=== PATIENT | female | born 1985 | race Caucasian/White ===

== ENCOUNTER 2024-08-09 23:05 | Inpatient (IN) | payer OTHER, SELFPAY ==
[2024-08-09] VITALS (12 sets, daily range): BP systolic 129–170; BP diastolic 74–113; BMI 40.0
[2024-08-09 14:44] LABS: % Basophils 0.4 % (0-2); % Eosinophils 0.4 % (0-6); % Immature Granulocytes 0.5 % (0-0.5); % Monocytes 7.3 % (1.7-9.3); % Neutrophils 69.4 % (42.2-75.2); Absolute Basophils 0.1 10^3/uL (0-0.2); Absolute Eosinophils 0.1 10^3/uL (0-0.7); Absolute Immature Granulocytes 0.1 10^3/uL (0-0.05); Absolute Lymphocytes 2.5 10^3/uL (1.2-3.4); Absolute Monocytes 0.8 10^3/uL (0.1-0.6); Hematocrit 42.8 % (37.0-47.0); Hemoglobin 14.6 g/dL (12.0-16.0); Mean Corp Hgb Conc. 34.1 g/dL (33.0-37.0); Mean Corpuscular Hgb 27.8 pg (27.0-31.0); Mean Corpuscular Volume 81.4 fL (81.0-99.0); Mean Platelet Volume 9.2 fL (7.4-10.4); Nucleated Red Blood Cells % 0 %; Platelet Count 410 10^3/uL (130-400); Red Blood Cell Count 5.26 10^6/uL (4.20-5.40); Red Cell Dist. Width 13.2 % (11.5-14.5); White Blood Cell Count 11.5 10^3/uL (4.8-10.8)
--- NOTE | 2024-08-09 14:44 | ED.CVA ---
History of Present Illness
General
Chief Complaint: CVA/TIA Symptoms
Time Seen by Provider: 08/09/24 14:05
Onset of Stroke Symptoms
Onset of symptoms known: No
Time pt last seen normal is known: No
History of Present Illness
History of Present Illness:
38-year-old female with history of hypertension presenting to the emergency department for strokelike symptoms. Patient reports a week ago she noticed that her left lip was drooping, lower lip. She thought it may be secondary to dental work that
she had gotten done, however the dental work was on the right side. Symptoms persisted through the week. This morning when she woke up, between 8 and 9, noticed some left upper and lower extremity weakness and tingling. Reports that she had a lag
when she was trying to type on her computer. Additionally felt like her speech was slightly off, feels like her tongue is numb on the left side. She denies any neurologic issues in the past or family history of neurologic disease. She denies any
fever or recent illness. She denies chest pain, difficulty breathing, abdominal pain. She denies any recent injury or fall. She denies additional acute medical complaints
Phy Exam
Physical Exam
Physical Exam:
General: Well-appearing, no clinical signs of dehydration, nontoxic and in no acute distress
HEENT: protecting airway
Neck: appears supple
CV: Normal heart rate, regular rhythm
Resp: No accessory muscle use, no increased work of breathing, lungs clear to auscultation bilaterally
Abd: Soft and non-distended, no tenderness to palpation
Extremities: No deformities, no swelling, no erythema, pulses and sensation intact
Neuro: alert, slight drooping of the left lower lip. Normal speech. Range of motion with strength and sensation intact to all extremities, minimal weakness to the left upper and lower extremity comparison to the right
: deferred
Rectal: deferred
Psych: Normal affect
Skin: Intact
Scores
NIH Stroke Score
Level of Consciousness: 0 - Alert
LOC Questions: 0-Answers both correctly
LOC Commands: 0-Performs both correctly
Best Horizontal Gaze: 0-Normal
Visual Krueger: 0=Normal, no visual loss
Facial Palsy: 1=Minor paralysis
Motor - Right Arm: 0=No drift 10 seconds
Motor - Left Arm: 0=No drift 10 seconds
Motor - Right Le-No drift 5 seconds
Motor - Left Le-No drift 5 seconds
Limb Ataxia: 0-Absent
Sensation: 0-Normal
Best Language: 0-No aphasia
Dysarthria: 0-Normal
Extinction and Inattention: 0-No abnormality
Total Score:: 1
Course
Orders/Labs/Results
Orders:
Orders
08/09/24 13:54
Electrocardiogram (*1) Urgent
Reason for Study: Bradycardia / Tachycardia
EKG- Treatment ONCE
08/09/24 14:18
CT Head W/o Iv Contrast Urgent
Comment:
Reason For Exam: L-facial droop, L-side weakness
08/09/24 14:20
Electrocardiogram (*1) Stat
Reason for Study: Other
Other Reason for Exam: neuro symptoms
EKG- Treatment ONCE
08/09/24 14:22
Test Result ONCE
08/09/24 14:25
Test Result ONCE
08/09/24 14:26
Complete Blood Count/With Diff Urgent
Comprehensive Metabolic Panel Urgent
HCG, Serum Qualitative Screen Urgent
PTT Urgent
Prothrombin Time Urgent
Urinalysis Reflex To Culture Urgent
Date Specimen was Collected: 08/09/24
Time Specimen was Collected: 14:23
08/09/24 16:21
Aspirin 325 mg PO NOW STA
08/09/24 16:50
CT Head & Neck Angio W/wo IV Urgent
Comment:
Reason For Exam: L-facial droop, slurring of speech
Abnormal Lab Results
08/09/24
14:26
WBC 11.5 H 10^3/uL
(4.8-10.8)
Plt Count 410 H 10^3/uL
(130-400)
Abs Immat Gran (auto) 0.1 H 10^3/uL
(0-0.05)
Absolute Neuts (auto) 8.0 H 10^3/uL
(1.4-6.5)
Absolute Monos (auto) 0.8 H 10^3/uL
(0.1-0.6)
Glucose 196 H mg/dl
(70-99)
Calcium 10.4 H mg/dl
(8.4-10.2)
AST 44 H U/L
(14-36)
ALT 74 H U/L
(0-35)
Albumin 5.1 H g/dl
(3.5-5.0)
Urine Glucose Trace A
(Negative)
08/09/24 14:26
08/09/24 14:26
Vital Signs
Initial and Last Documented VS:
Initial Vital Signs
Temp Pulse Resp BP Pulse Ox
98.2 F 130 16 170/113 98
08/09/24 13:48 08/09/24 13:48 08/09/24 13:48 08/09/24 13:48 08/09/24 13:48
Last Documented Vital Signs
Temp Pulse Resp BP Pulse Ox
98.2 F 83 21 133/82 96
08/09/24 13:48 08/09/24 21:00 08/09/24 21:00 08/09/24 21:00 08/09/24 21:00
MDM/Problems Addressed
MDM/Problems Addressed:
38-year-old female presenting to the emergency department for concern of strokelike symptoms. Vital signs on arrival are significant for high blood pressure.
On exam, patient well-appearing with benign cardiac and pulmonary exam. Patient with obvious drooping to the left lower lip. Patient reports some weakness to left upper and lower extremity, minimal, and overall globally intact. NIH stroke scale
of 1. Patient is not a tPA candidate with symptoms starting a week ago. Smiley's palsy is a consideration, however appears to only be isolated to the lip. Hypertensive urgency is a consideration, however blood pressure is improving without
additional concern for endorgan dysfunction. Plan for CT brain imaging, particularly given marked hypertension. Will plan for neurologic consultation
16:20 - CT negative for acute process, however symptoms are concerning. In discussion with neuro, recommending MRI and aspirin.
*Critical Care Note
Total Time (30-74mins, 75-104mins- exclusive of procedures): Not Applicable
ED Attending Note
-
Portions of this chart may have been created with voice recognition software.� Occasional wrong word or��sound alike� substitutions may have occurred due to the inherent limitations of voice recognition software.
Discharge Plan
Departure
Patient Disposition: Admit
Date of Disposition: 08/09/24
Time of Disposition: 16:56
Presentation/result/management discussed w/ accepting MD/DO: Hospitalist
Patient with high blood pressure during this ER visit?: Yes
Condition: Fair
Discharge Problem:
Stroke-like symptoms
Prescriptions:
No Action
Theragen Tablet
1 tab PO QPM
amlodipine 10 mg Tablet
10 mg PO HS
pantoprazole 40 mg Tablet,Delayed Release (Dr/Ec)
40 mg PO DAILY
valsartan 160 mg Tablet
160 mg PO HS
biotin 5 mg Tablet
5 mg PO QPM
cholecalciferol (vitamin D3) [Vitamin D3] 50 mcg (2,000 unit) Tablet
100 mcg PO QPM
Referrals:
Jl Goodwin DO [Family Provider] -
Interventions
Interventions:
*Risk Screen - Suicide Last Done: 08/09/24 13:48
*General Assessment Last Done: 08/09/24 14:07
*Neglect/Abuse Screening Last Done: 08/09/24 13:48
ED- Pulmonary Assessment Last Done: 08/09/24 14:07
ED- Neurological Assessment Last Done: 08/09/24 14:07
ED- Cardiac Assessment Last Done: 08/09/24 14:07
ED Swallowing Screen Last Done: 08/09/24 14:07
Discharge Date and Time
Print Language: PERSIAN
[2024-08-09 14:48] LABS: INR 0.99; PT 13.4 Sec (11.4-14.6)
[2024-08-09 14:49] LABS: APTT 27.8 Sec (23.4-35.0)
[2024-08-09 14:56] LABS: ALT (SGPT) 74 U/L (0-35); AST (SGOT) 44 U/L (14-36); Albumin 5.1 g/dl (3.5-5.0); Alkaline Phosphatase 71 U/L (38-126); Blood Urea Nitrogen 8 mg/dl (7-17); Calcium 10.4 mg/dl (8.4-10.2); Carbon Dioxide 26 mmol/L (22-30); Chloride 100 mmol/L (98-107); Estimated Creatinine Clearance > 125 ml/min; Glucose 196 mg/dl (70-99); Potassium 4.1 mmol/L (3.5-5.1); Sodium 137 mmol/L (135-145); Total Bilirubin 0.4 mg/dl (0.2-1.3); Total Protein 7.8 g/dl (6.3-8.2); eGFR > 60.00
[2024-08-09 14:57] LABS: HCG, Serum Qualitative Screen Negative
[2024-08-09 15:20] LABS: Urine Albumin Negative (Neg - Trace); Urine Bilirubin Negative (Negative); Urine Character Clear (Clear); Urine Color Yellow; Urine Glucose Trace (Negative); Urine Ketone Negative (Negative); Urine Leukocyte Negative (Negative); Urine Nitrite Negative (Negative); Urine Occult Blood Negative (Negative); Urine Urobilinogen Negative (Neg - 1+)
[2024-08-09] MEDS: ASPIRIN 325 MG PO (16:38)
--- NOTE | 2024-08-09 21:53 | HPS.HSE ---
Family Physician
-
Family Physician: Jl Goodwin
Chief Complaint
-
CVA/TIA symptoms
History of Present Illness
Patient is a 38-year-old female with past medical history significant for hypertension and GERD who presented to [place] ED for evaluation of left sided weakness. Patient reports getting dental work done on right lower mouth on Friday where she
had a crown placed. Patient states she noticed that left lower lip was dropping on Friday and though maybe it was residual effects from dental work, despite being opposite side of mouth. Since then she has noticed occasions where she has slurred
speech with some words and needs to slow down to enunciate. This morning when she took dog for walk she noticed some numbness in left leg and left arm. She came home and started working when she got concerned when typing with left hand became
difficult. Patient denies any fever, chills, cough, shortness of breath, chest pain, nausea, vomiting, constipation, diarrhea or urinary symptoms.
Medical History
Past Medical History
Past Medical History: Reports Other
Additional Past Medical History:
Hypertension
GERD
Past Surgical History: Reports Other
Additional Past Surgical History:
Right ankle fx repair
tonsillectomy
wisdom teeth
Social History
Tobacco: Non-smoker
Alcohol: Occasional
Drug: Marijuana (uses edible from dispensary for sleep occasionally last one 2 days ago post onset of symptoms)
Personal: Partner
Living: Other (with partner)
Employment: Employed
Family History
Family History: Not pertinent
Allergies / Home Medications
Allergies reflects when Allergies were last updated in [employer].
Home Medications with original date entered in [employer]
Allergy/Medication List:
Allergies
Allergy/AdvReac Type Severity Reaction Status Date / Time
Sulfa (Sulfonamide Allergy Unknown Verified 08/09/24 13:53
Antibiotics)
Home Medications
amlodipine 10 mg tablet 10 mg PO HS 08/09/24
biotin 5 mg tablet 5 mg PO QPM 08/09/24
cholecalciferol (vitamin D3) 50 mcg (2,000 unit) tablet (Vitamin D3) 100 mcg PO QPM 08/09/24
pantoprazole 40 mg tablet,delayed release 40 mg PO DAILY 08/09/24
therapeutic multivitamin 1 tab PO QPM 08/09/24
valsartan 160 mg tablet 160 mg PO HS 08/09/24
Review of Systems
-
History Source: Patient
Constitutional: Reports No Symptoms
EENT: Reports No Symptoms
Respiratory: Reports No Symptoms
Cardiac: Reports No Symptoms
Abdomen/GI: Reports No Symptoms
: Reports No Symptoms
Musculoskeletal: Reports No Symptoms
Skin: Reports No Symptoms
Neurological: Reports Weakness (left sided), Numbness (left upper and lower extremity) and Other (left lower lip droop)
Endocrine: Reports No Symptoms
Hematologic/Lymphatic: Reports No Symptoms
Psych: Reports No Symptoms
Physical Exam
Vital Signs
Vital Signs
Temp Pulse Resp BP Pulse Ox
98.2 F 83 21 133/82 96
08/09/24 13:48 08/09/24 21:00 08/09/24 21:00 08/09/24 21:00 08/09/24 21:00
Physical Exam
General: Well Developed, Well Nourished, No Apparent Distress, Comfortable and Conversant
HEENT: NormoCephalic, Moist mucous membranes, Atraumatic, PERRLA, [place] Conjunctivae, Nose Appears Normal and Ears Appear Normal
Respiratory: Clear and Non Labored Respirations
Cardiac: S1/S2 and Regular Rhythm; No Murmur, Rub or Gallop
Breast: Deferred by me
GI: Soft, Non Tender and Normal Bowel Sounds; No Organomegaly
Rectal: Deferred by Provider
Genito-urinary: Deferred by me
Musculoskeletal: No Clubbing, No Cyanosis and No Edema
Skin: Warm and IV/Catheter Site; No Rash
Neuro: Awake, Alert, AO x 3, Nonfocal/grossly intact and Facial Droop (left lower lip)
Psych: Calm and Intact Judgment/Insight
Laboratory Results
-
08/09/24 14:26
08/09/24 14:
Laboratory Results
PT 13.4 Sec (11.4-14.6) 08/09/24 14:26
INR 0.99 08/09/24 14:
APTT 27.8 Sec (23.4-35.0) 08/09/24 14:
Total Bilirubin 0.4 mg/dl (0.2-1.3) 08/09/24 14:
AST 44 U/L (14-36) H 08/09/24 14:
ALT 74 U/L (0-35) H 08/09/24 14:
Alkaline Phosphatase 71 U/L (38-126) 08/09/24 14:
Data Reviewed
-
CT Scan: Report Reviewed by me (Head CT: No acute intracranial abnormality noted; Head CTA: No evidence of acute vascular abnormality of the head/neck. No evidence of M1 and M2 occlusion. Mild reversal of the normal cervical spinal lordosis. This
can be seen with muscular spasm. Bilateral subcentimeter hypodense thyroid lesions)
Medical Tests (Nuc Med, Echo, EKG etc): Report Reviewed by me (EKG: SINUS TACHYCARDIA OTHERWISE NORMAL ECG NO PREVIOUS ECGS AVAILABLE)
Lab Data: Labs Reviewed by me (WBC 11.5, )
Impression/Plan
-
IMPRESSION/PLAN:
#Likely CVA
Left lower lip droop x2 days
Left sided weakness and numbness
CT: No acute intracranial abnormality noted.
CTA: No evidence of acute vascular abnormality of the head/neck. No evidence of M1 and M2 occlusion.
Mild reversal of the normal cervical spinal lordosis. This can be seen with muscular spasm.
Bilateral subcentimeter hypodense thyroid lesions likely benign nodules. Nonurgent dedicated thyroid ultrasound recommended if not previously evaluated.
- Admit to telemetry
- Consult Neurology
- MRI
- Neurochecks
- NIH
- start plavix
#hypertension
- continue amlodipine and valsartan
#GERD
- continue pantoprazole
Code Status: Full Code
DVT Prophylaxis: SCDs
--- NOTE | 2024-08-09 22:27 | W.PN.UPDATE ---
Update Note
Progress Note Update
This is an addendum to the H&P written by Brianda Adrian on 08/09/2024. Patient seen and examined independently with REFRACTORY TECHNICIAN.
38-year-old female past medical history of hypertension presenting with left lower lip drooping a week ago. This morning she had left upper and lower extremity weakness and tingling, difficulty typing on computer and speech abnormality numbness of
tongue on the left side. She had right side dental work last week.
CT head negative for any intracranial abnormality. CTA head and neck unremarkable.
Labs show mild transaminitis. Leukocytosis. Urinalysis negative. EKG shows sinus tachycardia.
Concern for CVA. Aspirin given. Will also give Plavix.
Check MRI brain. Neurology consulted.
[2024-08-10] VITALS (18 sets, daily range): BP systolic 121–194; BP diastolic 73–107; BMI 39.0
[2024-08-10 06:28] LABS: Troponin I < 0.012 ng/ml
[2024-08-10 07:06] LABS: Blood Urea Nitrogen 10 mg/dl (7-17); Calcium 9.7 mg/dl (8.4-10.2); Carbon Dioxide 22 mmol/L (22-30); Chloride 102 mmol/L (98-107); Estimated Creatinine Clearance > 125 ml/min; Glucose 145 mg/dl (70-99); HDL Cholesterol 42 mg/dl; LDL Cholesterol, Calculated 117 mg/dl; Potassium 4.1 mmol/L (3.5-5.1); Sodium 137 mmol/L (135-145); Total Cholesterol 198 mg/dl (50-199); Triglyceride 197 mg/dl (10-149); Very Low Density Lipoprotein 39 mg/dl (0-30); eGFR > 60.00
[2024-08-10 07:19] LABS: Erythrocyte Sed Rate 8 mm/hour (0-20)
[2024-08-10 07:35] LABS: % Basophils 0.4 % (0-2); % Eosinophils 1.2 % (0-6); % Immature Granulocytes 0.5 % (0-0.5); % Lymphocytes 27.7 % (20.5-51.1); % Monocytes 8.2 % (1.7-9.3); Absolute Basophils 0.1 10^3/uL (0-0.2); Absolute Eosinophils 0.2 10^3/uL (0-0.7); Absolute Immature Granulocytes 0.1 10^3/uL (0-0.05); Absolute Lymphocytes 3.4 10^3/uL (1.2-3.4); Absolute Neutrophils 7.7 10^3/uL (1.4-6.5); Hematocrit 42.1 % (37.0-47.0); Hemoglobin 14.4 g/dL (12.0-16.0); Mean Corp Hgb Conc. 34.2 g/dL (33.0-37.0); Mean Corpuscular Volume 81.9 fL (81.0-99.0); Mean Platelet Volume 9.7 fL (7.4-10.4); Nucleated Red Blood Cells % 0 %; Platelet Count 416 10^3/uL (130-400); Red Blood Cell Count 5.14 10^6/uL (4.20-5.40); Red Cell Dist. Width 13.4 % (11.5-14.5); White Blood Cell Count 12.3 10^3/uL (4.8-10.8)
[2024-08-10] MEDS: PROTONIX PO (07:50)
[2024-08-10] MEDS: PLAVIX PO (07:50)
[2024-08-10] MEDS: PLAVIX 75 MG PO (07:50)
[2024-08-10 09:35] LABS: Vitamin D, 25-OH*** 21.4 ng/mL (30-80)
--- NOTE | 2024-08-10 09:36 | CON.NEURO4 ---
Addendum entered and electronically signed by Ramo Castañeda MD 08/10/24 12:00:
Studies reviewed.
I have personally examined the patient. I reviewed and agree with the [facility]ECT[facility]ER's Note.
My addenda:
Awake, alert, interactive. No acute distress.
Speech minimally thick at times.
Follows 2-step requests w/o difficulty. No tremor.
Extra-ocular movements grossly intact.
Facial movements minimally reduced on the left compared with right especially with spontaneous facial movements. Hearing intact to normal conversational volume.
Normal UE movements bilaterally.
Neck: full ROM.
Chest: no dyspnea
Heart: no JVD
Ext: (-) Clubbing, (-) Cyanosis, (-) Edema
IMPRESSIONS/RECOMMENDATIONS:
Abrupt onset of left-sided weakness involving arm and leg as well as left face, with prior episode of bladder dysfunction taking place several months ago
Differential diagnosis includes multiple sclerosis based on MRI of brain findings, lupus, MS variants including NMOSD and MOGAD
Check MRI of brain with contrast to better determine if enhancement is taking place or if additional lesions are present
Check MRI of cervical and thoracic spines with eventual MRI of the lumbar spine
If there are no lesions in the cervical or thoracic spines, would perform lumbar puncture to better determine diagnosis and eliminate causes other than multiple sclerosis
Start methylprednisolone 1 g IV for 5 days
Check additional blood work for metabolic answers
Rehabilitation evaluations
D/W patient / nursing
All questions answered.
Will continue to follow patient.
Original Note:
Consultation - Neurology 4
-
CONSULTING PHYSICIAN: Dr. Ramo Castañeda
REFERRING PHYSICIAN: Dayanna Adrian
DICTATED BY: Brittny OLIVEROS
DATE/TIME OF REQUEST: 08/09/2024
DATE/TIME OF CONSULTATION: 08/10/2024
Reason for Consultation: left facial weakness and left hand decreased coordination and left LE sensation changes
History of Present Illness:
This is a 38 year old female patient with a past medical past medical history of HTN, GERD and anxiety that presented with left sided weakness of left lower lip, lack of coordination of left hand and upper left thigh numbness.� She felt her gait is
not normal but denies any significant weakness.� She denied any vision changes or any additional numbness or weakness.� Symptoms initially started last Friday when she noted weakness of her left lower lip and some mild speech changes.� She had had
dental surgery the Friday before and thought that weakness may have been related to that. Yesterday she was typing and noted some lack of coordination with her left hand, she was fearful of stroke and decided she needed to be evaluated.� She denied
any similar symptoms in the past. �She does admit to some bladder urgency, but no incontinence of urine.� Has had no issues with bowel. No visual changes, not other paresthesias.
Of note she had some hair loss in 2018 and had seen a subspecialist who had thought she may have had an autoimmune disease possibly lupus, but this was ruled out and was told she just had a Vitamin D deficiency.�
Symptoms have been persistent, have not improved.
Past Medical History: HTN, GERD, vitamin D deficiency and anxiety
Surgical History: right ankle surgery
Family History: no family history of MS
Social History: Pt lives with significant other. She does not smoke or drink ETOH
Allergies: see below
Home Medications: see below
Review of Symptoms:
Patient denies any fever, headache, chest pain, shortness of breath, GI or symptoms.
�
Vital Signs: see below
Physical Exam:
The patient is afebrile, heart sounds S1 and S2 are regular, and chest is clear to auscultation bilaterally.
Neurologic Examination:
The patient is awake, alert and oriented x 3. She is able to follow commands and answer questions appropriately. There is no aphasia, mild dysarthria. On cranial nerve assessment, pupils are 3 mm bilateral, round and reactive to light and
accommodation. Visual white are full. Extraocular movements are intact. Facial sensations are intact and bilaterally symmetrical, there is left facial droop. Hearing is intact bilaterally to normal conversation volume. Tongue palate and uvula are
midline. Sternocleidomastoid strengths are full bilaterally. Motor strengths are 5/5 bilateral upper and lower extremities on medical research Tang[place]naq scale. There is no drift or involuntary movement noted. Deep tendon reflexes are 2+ bilateral
upper and lower extremities and Babinski is absent bilaterally. Sensations of light touch, temperature and vibration are intact and bilaterally symmetrical. There was no extinction noted on double simultaneous stimulation. Coordination is intact by
finger to nose bilaterally.
Lab Results: see below
Neuro Imaging:
CT head (08/09/2024)-No acute intracranial abnormality noted.
CTA head and neck (08/09/2024)-No evidence of acute vascular abnormality of the head/neck. No evidence of M1 and M2 occlusion. Mild reversal of the normal cervical spinal lordosis. This can be seen with muscular spasm.
Bilateral subcentimeter hypodense thyroid lesions likely benign nodules. Nonurgent dedicated thyroid ultrasound recommended if not previously evaluated.
MRI brain with and without contrast (08/10/2024)-White matter lesions in the bilateral cerebral hemispheres, with the largest measuring 2.1 cm in the right frontoparietal periventricular white matter. The distribution raises concern for
demyelination/multiple sclerosis. Clinical correlation is recommended.
Impression:
JULIA GAO is a 38 year old F who has presented to the hospital with left facial weakness, dysarthria, left hand with reduced coordination and left leg numbness likely secondary to MS as lesion noted on MRI brain, less likely infection or
lyme.
Recommendations:
-Reviewed MRI brain without contrast
-Need additional MRI brain with and without contrast, cervical spine with and without contrast and MRI thoracic spine with and without contrast
-will start high dose steroids, methylprednisolone 1000 mg IV daily
-discontinue Plavix, and ASA
-start vitamin D 4000 units daily
-will order additional labs
-may need to consider LP, if no further lesions noted on additional MRI's
-continue Neurochecks per unit guidelines, but can discontinue NIHSS
-continue speech
-will order PT and OT evaluations
Discussed patient care with patient, and neurologist, Dr. Castañeda
Medication and Allergies
Home Medications
Home Medications
�Medication �Instructions �Recorded
amlodipine 10 mg tablet 10 mg PO HS 08/09/24
biotin 5 mg tablet 5 mg PO QPM 08/09/24
cholecalciferol (vitamin D3) 50 100 mcg PO QPM 08/09/24
mcg (2,000 unit) tablet (Vitamin
D3)
pantoprazole 40 mg tablet,delayed 40 mg PO DAILY 08/09/24
release
therapeutic multivitamin 1 tab PO QPM 08/09/24
valsartan 160 mg tablet 160 mg PO HS 08/09/24
Allergies
Allergies
Allergy/AdvReac Type Severity Reaction Status Date / Time
Sulfa (Sulfonamide Allergy Unknown Verified 08/09/24 13:53
Antibiotics)
Vital Signs / Labs
-
Vital Signs and Labs:
Temp Pulse Resp BP Pulse Ox
98.5 F 78 27 156/86 97
08/10/24 10:23 08/10/24 10:20 08/10/24 08:00 08/10/24 10:20 08/10/24 10:20
08/10/24 05:32
08/10/24 05:32
08/09/24 08/10/24
14:26 05:32
WBC 11.5 H 12.3 H
Plt Count 410 H 416 H
Abs Immat Gran (auto) 0.1 H 0.1 H
Absolute Neuts (auto) 8.0 H 7.7 H
Absolute Monos (auto) 0.8 H 1.0 H
Glucose 196 H 145 H
Hemoglobin A1c 7.0 H
Calcium 10.4 H
AST 44 H
ALT 74 H
C-Reactive Protein 11.00 H
Albumin 5.1 H
Triglycerides 197 H
VLDL Cholesterol, Calc 39 H
Vitamin D 25-Hydroxy 21.4 L
Urine Glucose Trace A
[2024-08-10 09:48] LABS: TSH Reflex To Free T4 2.73 uIU/ml (0.47-4.68)
[2024-08-10 09:52] LABS: Ferritin 15.5 ng/ml (6.24-137)
[2024-08-10] MEDS: SOLU-MEDROL 258 MG IV (10:08)
--- NOTE | 2024-08-10 10:11 | PTOTSP ---
Speech Therapy Assessment
Patient presents with a slight dysarthria characterized by imprecise articulation with need for slow rate to effectively reach sound targets. Language and swallowing deemed within functional limits.
Recommend
1. Continue with regular solids and thin liquids.
2. Patient is effectively utilizing strategies for improved articulation, therefore no skilled ST indicated in acute level of care.
[2024-08-10] MEDS: VITAMIN D3 (cholecalciferol) 125 MCG PO (10:13)
[2024-08-10 10:24] LABS: Folate 19.6 ng/ml (2.76-20); Vitamin B12 769 pg/ml (239-931)
[2024-08-10 13:07] LABS: Amphetamines Negative (Negative); Barbiturates Negative (Negative); Benzodiazepines Negative (Negative); Buprenorphine Negative (Negative); Cocaine Negative (Negative); Marijuana Positive (Negative); Methadone Negative (Negative); Methamphetamines Negative (Negative); Opiates Negative (Negative); Phencyclidine Negative (Negative); Tricyclic Antidepressants Negative (Negative)
--- NOTE | 2024-08-10 14:11 | W.PN.HOSP.TC ---
Today's Communication/Plan
-
Monitor vital signs see plan
MRI spine pending
Start high-dose IV steroids
PPI
A1c
Assessment / Plan
Assessment / Plan
Left lower lip droop, left-sided weakness and numbness likely secondary to demyelination with possible MS
Left sided weakness and numbness
CT: No acute intracranial abnormality noted.
CTA: No evidence of acute vascular abnormality of the head/neck. No evidence of M1 and M2 occlusion.
Mild reversal of the normal cervical spinal lordosis. This can be seen with muscular spasm.
Bilateral subcentimeter hypodense thyroid lesions likely benign nodules. Nonurgent dedicated thyroid ultrasound recommended if not previously evaluated.
MRI brain with white matter changes, MRI cervical and thoracic spine pending
Started high-dose steroids
PPI
DC further Plavix
A1c pending
#hypertension
- continue amlodipine and valsartan
#GERD
- continue pantoprazole
Code Status: Full Code
DVT Prophylaxis: SCDs
General: Well Developed, Well Nourished, No Apparent Distress, Comfortable and Conversant
HEENT: NormoCephalic, Moist mucous membranes, Atraumatic, PERRLA, [place] Conjunctivae, Nose Appears Normal and Ears Appear Normal
Respiratory: Clear and Non Labored Respirations
Cardiac: S1/S2 and Regular Rhythm; No Murmur, Rub or Gallop
GI: Soft, Non Tender and Normal Bowel Sounds
Musculoskeletal: No Clubbing, No Cyanosis and No Edema
Skin: Warm and IV/Catheter Site; No Rash
Neuro: Awake, Alert, AO x 3, Nonfocal/grossly intact and Facial Droop (left lower lip)
Psych: Calm and Intact Judgment/Insight
Anticipated Discharge: > 48 hours
Subjective/Interval History
-
Date of Service: August 10, 2024
still has numbness
Objective Data
-
Labs:
Laboratory Results
12/03/24
05:32
WBC 12.3 H
Hgb 14.4
Hct 42.1
Plt Count 416 H
Sodium 137
Potassium 4.1
Chloride 102
Carbon Dioxide 22
BUN 10
Creatinine 0.6
Glucose 145 H
Calcium 9.7
Vital Signs:
Vital Signs
Temp Pulse Resp BP Pulse Ox
98.7 F 100 22 149/84 97
08/10/24 12:09 08/10/24 12:09 08/10/24 12:09 08/10/24 12:09 08/10/24 12:09
I&O
08/09/24 08/10/24 08/11/24
06:59 06:59 06:59
Intake Total 240 / 240 258 / 258
Balance 240 / 240 258 / 258
[2024-08-10] MEDS: DRISDOL (VITAMIN D2) 50000 UNITS PO (14:46)
[2024-08-10] MEDS: LOPRESSOR 5 MG IV (15:53)
--- NOTE | 2024-08-10 16:18 | CM ---
CM met with pt bedside
Pt resides with her SO/Gera in a 2SH with 2 SUDHIR
Full flight to 2nd floor
Pt is independent with her ADLs- drives+, denies DMEs
Pt works in [employer]
Denies financial insecurities
PCP- Jl Goodwin
Rx- [facility] [address] [place]
Pt does not have POAs
Medical POA paperwork provided to her
She noted she will review with her SO as she would like him to be her decision maker if needed
Discharge Disposition- home, no needs anticipated
[2024-08-10 17:23] LABS: Glucose - Point of Care 297 mg/dl (70-99)
[2024-08-10] MEDS: NOVOLOG FLEXPEN-LOW RESISTANCE SC (17:50)
[2024-08-10 22:09] LABS: Glucose - Point of Care 245 mg/dl (70-99)
[2024-08-10] MEDS: FEOSOL 325 MG PO (23:21)
[2024-08-10] MEDS: DIOVAN 160 MG PO (23:24)
[2024-08-10] MEDS: NORVASC 10 MG PO (23:25)
[2024-08-11] VITALS (9 sets, daily range): BP systolic 95–172; BP diastolic 79–92
[2024-08-11] MEDS: ATIVAN 0.5 MG IV (02:15)
[2024-08-11] MEDS: NSS (PRESERVATIVE FREE) 0.25 ML IV (02:15)
[2024-08-11 07:24] LABS: Glucose - Point of Care 196 mg/dl (70-99)
--- NOTE | 2024-08-11 07:36 | PTCARENOTE ---
Throughout the night, pt's heart monitor alarmed heart rate 110s-120s. Pt reports 'I can feel my heart beating faster.' Pt denied SOB, difficulty breathing, lightheadedness, and dizziness. AM RN updated. Plan of care ongoing.
[2024-08-11] MEDS: NOVOLOG FLEXPEN-LOW RESISTANCE 1 UNITS SC ×2 (07:56→12:31)
[2024-08-11] MEDS: VITAMIN D3 (cholecalciferol) 125 MCG PO (07:57)
[2024-08-11] MEDS: PROTONIX 40 MG PO (07:57)
[2024-08-11 08:00] LABS: Hematocrit 42.7 % (37.0-47.0); Hemoglobin 14.9 g/dL (12.0-16.0); Mean Corp Hgb Conc. 34.9 g/dL (33.0-37.0); Mean Corpuscular Hgb 28.1 pg (27.0-31.0); Mean Corpuscular Volume 80.6 fL (81.0-99.0); Mean Platelet Volume 9.6 fL (7.4-10.4); Platelet Count 458 10^3/uL (130-400); Red Cell Dist. Width 13.3 % (11.5-14.5); White Blood Cell Count 30.6 10^3/uL (4.8-10.8)
[2024-08-11 08:22] LABS: ALT (SGPT) 69 U/L (0-35); AST (SGOT) 37 U/L (14-36); Alkaline Phosphatase 71 U/L (38-126); Blood Urea Nitrogen 17 mg/dl (7-17); Calcium 10.5 mg/dl (8.4-10.2); Carbon Dioxide 16 mmol/L (22-30); Chloride 105 mmol/L (98-107); Direct Bilirubin 0.2 mg/dl (0.0-0.4); Estimated Creatinine Clearance > 125 ml/min; Glucose 175 mg/dl (70-99); Sodium 137 mmol/L (135-145); Total Bilirubin 0.7 mg/dl (0.2-1.3); Total Protein 7.7 g/dl (6.3-8.2); eGFR > 60.00
--- NOTE | 2024-08-11 08:23 | W.PN.NEURO.1 ---
Today's Communication / Plan
-
await MRI of thoracic spine results
Continue methylprednisolone which was initiated on 08/10/2024 for total of 5 doses
check lumbar puncture to determine if MS or mimic if MRI of Thoracic spine results are normal also
Neuro Assessment/Plan
Assessment
Abrupt onset of left-sided weakness involving arm and leg as well as left face, with prior episode of bladder dysfunction taking place several months ago
Differential diagnosis includes multiple sclerosis based on MRI of brain findings, lupus, MS variants including NMOSD and MOGAD
Plan
await MRI of thoracic spine results
Continue methylprednisolone which was initiated on 08/10/2024 for total of 5 doses
check lumbar puncture to determine if MS or mimic if MRI of Thoracic spine results are normal also
await lab results
Goal of normotension
Goal of normoglycemia
Consider MRI of lumbar spine based on next results
Reviewed eventual need for outpatient medication to remediate risk of additional exacerbation
Will follow
Subjective/Objective
Subjective Data
Date of Service: August 11, 2024
Mildly improved. No issues with steroids
Objective Data
Vital Signs
Temp Pulse Resp BP Pulse Ox
36.7 C 90 16 145/92 98
08/11/24 07:34 08/11/24 07:34 08/11/24 07:34 08/11/24 07:34 08/11/24 07:34
Lab Results
08/11/24 06:41
08/11/24 06:41
PT 13.4 Sec (11.4-14.6) 08/09/24 14:26
INR 0.99 08/09/24 14:26
APTT 27.8 Sec (23.4-35.0) 08/09/24 14:26
Sodium 137 mmol/L (135-145) 08/11/24 06:41
Potassium 5.0 mmol/L (3.5-5.1) 08/11/24 06:41
BUN 17 mg/dl (7-17) 08/11/24 06:41
Glucose 175 mg/dl (70-99) H 08/11/24 06:41
Calcium 10.5 mg/dl (8.4-10.2) H 08/11/24 06:41
LDL Cholesterol, Calc 117 mg/dl 08/10/24 05:32
Vitamin B12 769 pg/ml (239-931) 08/10/24 05:32
Ur Buprenorphine Negative (Negative) 08/10/24 12:07
Patient Allergies
Sulfa (Sulfonamide Antibiotics) Allergy (Verified 08/09/24 13:53)
Unknown
Review of Systems
-
History Source: Patient
All other systems: Reviewed and negative
EENT: Negative Swallowing Difficulty
Respiratory: Negative Trouble Breathing
Cardiac: Negative Chest Pain
Abdomen/GI: Negative Incontinence of Stool
Genitourinary: Negative Incontinence
Musculoskeletal: Muscle Weakness (left hand) and Other (left thigh, facial weakness on left); Negative Back Pain or Neck Pain
Neuro: Negative Dizzy or Headache
Physical Exam
-
General: No Apparent Distress and Appears Stated Age
Eyes: Round OU, [place] Conjunctivae and No Ptosis
HEENT: Anicteric and Moist Mucous Membranes
Neck: Full Range of Motion
Respiratory: No Dyspnea
Cardiac: No JVD
GI: Non-distended
Skin: Unremarkable
Extremities: No Clubbing, No Cyanosis and No Edema
Psych: Intact Judgement/Insight
Extended Neurological Exam
Mood & Affect: Mood Unremarkable and Affect Unremarkable
Attention Span & Concentration: Awake, Alert, Interactive and No Difficulty with 2 Step Request
Memory: Unremarkable
Tremor: Hand Tremor Absent and Head Tremor Absent
Speech: Quality Unremarkable and Quantity Unremarkable
Cranial Nerve II: Left Eye: Pupillary Size Unremarkable and Visual Krueger Grossly Intact
Cranial Nerve II: Right Eye: Pupillary Size Unremarkable and Visual Krueger Grossly Intact
Cranial Nerves III, IV, : Extraocular Movement: Grossly Intact
Cranial Nerve VII: Facial Symmetry: Normal Facial Symmetry
Cranial Nerve VIII: Hearing: Unremarkable Hearing to Normal Conversational Volume
Cranial Nerve XI: Shoulder Shrug: Unremarkable
Muscle Strength, Overall: Spontaneously Moves
Muscle Bulk & Tone: Bulk Unremarkable and Tone Unremarkable
Touch Sensation: Unremarkable
Coordination: [id number] Testing Unremarkable
Data Reviewed
-
MRI Head: Report Reviewed
MRI Cervical Spine: Report Reviewed
MRI Thoracic Spine: Image Reviewed
Labs: Report Reviewed
Reviewed with: Physician, Nurse Practioner and Patient
Old Records: Summarized
Past History
Past History
ED Past Medical History: GERD, HTN, NIDDM and Other (obesity)
Medications
-
Medications:
Generic Name Dose Route Start Last Admin
Trade Name Freq PRN Reason Stop Dose Admin
Acetaminophen 650 mg 08/10/24 00:48
Acetaminophen 325 Mg Tablet PO 09/07/24 00:47
Q4HPRN PRN
HENDERSON, mild pain, or temp >100.4F
Amlodipine Besylate 10 mg 08/10/24 22:00 08/10/24 23:25
Amlodipine 10 Mg Tablet PO 09/07/24 21:59 10 mg
HS BENEDICT Administration
Cholecalciferol 125 mcg 08/10/24 11:30 08/11/24 07:57
Cholecalciferol (Vitamin D3) 125 Mcg Tablet (5,000 Units) PO 09/07/24 11:29 125 mcg
DAILY BENEDICT Administration
Dextrose 12.5 grams 08/10/24 14:12
Dextrose 50% (0.5 Grams/Ml) 50 Ml Syringe IV 09/07/24 14:11
[id number] PRN
hypoglycemia
Protocol
Ergocalciferol 50,000 units 08/10/24 14:00 08/10/24 14:46
Ergocalciferol (Vitamin D-2) 75310 Units Capsule PO 09/07/24 13:59 50,000 units
Q7D BENEDICT Administration
Ferrous Sulfate 325 mg 08/10/24 22:00 08/10/24 23:21
Ferrous Sulfate 325 Mg Tablet PO 09/07/24 21:59 325 mg
HS BENEDICT Administration
Glucagon 1 mg 08/10/24 14:12
Glucagon 1 Mg Vial IM 09/07/24 14:11
PRN PRN
hypoglycemia
Protocol
Methylprednisolone Sodium 258 mls @ 258 mls/hr 08/10/24 10:00 08/10/24 10:08
Succinate 1,000 mg/ Sodium IV 08/14/24 10:59 258 mls
Chloride Q24H BENEDICT Administration
Insulin Aspart 0 units 08/10/24 16:30 08/11/24 07:56
Insulin Aspart Low Resistance 300 Units/3 Ml Pen.Injctr SC 09/07/24 16:29 1 units
AC BENEDICT Administration
Protocol
Pantoprazole Sodium 40 mg 08/10/24 08:00 08/11/24 07:57
Pantoprazole 40 Mg Delayed Release Tablet PO 09/07/24 07:59 40 mg
DAILY BENEDICT Administration
Sodium Chloride 0 flush 08/10/24 02:00
Sodium Chloride 0.9% (Flush) Syringe IV 09/07/24 01:59
PER PROTOCOL BENEDICT
Valsartan 160 mg 08/10/24 22:00 08/10/24 23:24
Valsartan 80 Mg Tablet PO 09/07/24 21:59 160 mg
HS BENEDICT Administration
[2024-08-11 09:19] LABS: % Basophils 0.2 % (0-2); % Immature Granulocytes 0.9 % (0-0.5); % Lymphocytes 7.7 % (20.5-51.1); % Monocytes 3.1 % (1.7-9.3); % Neutrophils 88.1 % (42.2-75.2); Absolute Basophils 0.1 10^3/uL (0-0.2); Absolute Immature Granulocytes 0.3 10^3/uL (0-0.05); Absolute Lymphocytes 2.4 10^3/uL (1.2-3.4); Nucleated Red Blood Cells % 0 %
[2024-08-11] MEDS: NSS 1000 IV (10:01)
[2024-08-11] MEDS: SOLU-MEDROL 258 MG IV (10:01)
[2024-08-11] MEDS: ORETIC 12.5 MG PO (10:11)
--- NOTE | 2024-08-11 10:24 | PN.DE.MGMTRT ---
Insulin Management
- -
08/11/2024: Diabetes Management Consult:
38 year old female w/PMH: HTN, GERD and anxiety that presented with Abrupt onset of left-sided weakness involving arm and leg as well as left face, with prior episode of bladder dysfunction taking place several months ago. MRI of brain findings
concerning for differential dx including: MS variants including NMOSD and MOGAD and Lupus. Pt has been started on stress dose IV steroids contributing to hyperglycemia. A1C 7.0%, Cr 0.6, eGFR >60
Pt awake, alert, sitting up in bed, offers no complaints, able to discuss diabetes mgt.
States she has gained significant amt of weight since breaking her ankle 2 yrs ago. she no longer exercises as much as she used to prior to the injury.
Pt remains on steroids- Methylprednisolone 1000 mg daily for total of 5 doses.
08/10 pre-dinner glucose was 297 and 245 @ HS with a FBG of 196 this AM.
Will start basal/bolus insulin while on steroid, with plans to transition to oral regimen given current A1C of 7%
Give Lantus 15 units now and daily in AM. Start NovoLog 5 units AC, metformin 500mg BID.
Will closely monitor and adjust insulin if needed but eventually discontinue insulin all together once steroids have been weaned off.
Diabetes History
- -
Type of Diabetes: 2 requiring insulin
Pre-Admission Diabetes Regimen
08/11/24
06:41
Creatinine 0.6
Lab Results
Hemoglobin A1c 7.0 % (4.0-5.6) H 08/10/24 05:32
Insulin Pump Settings
IP Diabetes Regimen
08/10/24 08/10/24 08/11/24
17:20 22:06 06:41
Glucose 175 H
POC Glucose 297 H 245 H
08/11/24
07:20
Glucose
POC Glucose 196 H
Meal type: Lunch
Amount consumed: 70%
Patient Education
[2024-08-11 12:07] LABS: Glucose - Point of Care 197 mg/dl (70-99)
[2024-08-11] MEDS: LANTUS 0.15 UNITS SC (12:31)
[2024-08-11] MEDS: NOVOLOG FLEXPEN 5 UNITS SC ×2 (12:31→18:00)
--- NOTE | 2024-08-11 13:06 | W.PN.HOSP.TC ---
Today's Communication/Plan
-
monitor vitals
see plan
thoracic MRI
neurology
LP per neurology
diabetes FURNACE MASON consult
start HCTZ
IVF
Assessment / Plan
Assessment / Plan
Left lower lip droop, left-sided weakness and numbness likely secondary to demyelination with possible MS
Left sided weakness and numbness
CT: No acute intracranial abnormality noted.
CTA: No evidence of acute vascular abnormality of the head/neck. No evidence of M1 and M2 occlusion.
Mild reversal of the normal cervical spinal lordosis. This can be seen with muscular spasm.
Bilateral subcentimeter hypodense thyroid lesions likely benign nodules. Nonurgent dedicated thyroid ultrasound recommended if not previously evaluated.
MRI brain with white matter changes, MRI cervical spine neg and thoracic spine pending
LP per neurology if Tspine is neg
Started high-dose steroids,continue
PPI
DC further Plavix
New onset DM
consult diabetes FURNACE MASON
A1c 7
accuchecks; LDSS
#hypertension
uncontrolled; added HCTZ
- continue amlodipine and valsartan
mild hypercalcemia
start IVF
#GERD
- continue pantoprazole
Code Status: Full Code
DVT Prophylaxis: SCDs
General: Well Developed, Well Nourished, No Apparent Distress, Comfortable and Conversant
HEENT: NormoCephalic, Moist mucous membranes, Atraumatic, PERRLA, [place] Conjunctivae, Nose Appears Normal and Ears Appear Normal
Respiratory: Clear and Non Labored Respirations
Cardiac: S1/S2 and Regular Rhythm; No Murmur
Musculoskeletal: No Edema
Skin: Warm and IV/Catheter Site; No Rash
Neuro: Awake, Alert, AO x 3, Nonfocal/grossly intact and Facial Droop (left lower lip)
Psych: Calm and Intact Judgment/Insight
I spent a total of 51 minutes with the patient or on the floor. More than 50% of this time involved counseling and coordination of care.
Anticipated Discharge: > 48 hours
Subjective/Interval History
-
Date of Service: August 11, 2024
feeling little better
Objective Data
-
Labs:
Laboratory Results
08/11/24
06:41
WBC 30.6 H
Hgb 14.9
Hct 42.7
Plt Count 458 H
Sodium 137
Potassium 5.0
Chloride 105
Carbon Dioxide 16 L
BUN 17
Creatinine 0.6
Glucose 175 H
Calcium 10.5 H
Total Bilirubin 0.7
AST 37 H
ALT 69 H
Alkaline Phosphatase 71
Vital Signs:
Vital Signs
Temp Pulse Resp BP Pulse Ox
97.9 F 94 16 144/87 96
08/11/24 11:16 08/11/24 11:16 08/11/24 11:16 08/11/24 11:16 08/11/24 11:16
I&O
08/10/24 08/11/24 08/12/24
06:59 06:59 06:59
Intake Total 240 / 240 1263 / 1263
Balance 240 / 240 1263 / 1263
--- NOTE | 2024-08-11 15:15 | CM ---
Chart reviewed and binder caser met with patient and significant other at bedside, plan is to home when stable, binder caser will follow with patient progress.
Plan; Home when stable.
[2024-08-11 17:59] LABS: Glucose - Point of Care 237 mg/dl (70-99)
[2024-08-11] MEDS: NOVOLOG FLEXPEN-LOW RESISTANCE 2 UNITS SC (18:00)
[2024-08-11 18:07] LABS: CSF Color Colorless; CSF Tube # 4; CSF Tube # Clarity Clear; Red Cell Count/CSF 12 mm^3; White Blood Cell Count/CSF 2 mm^3 (0-5)
[2024-08-11 18:08] LABS: Spinal Fluid Glucose 135 mg/dl (40-70); Spinal Fluid Protein 45 mg/dl (12-60)
[2024-08-11 18:09] LABS: CSF Tube # 1
[2024-08-11 18:10] LABS: CSF Clarity Clear; CSF Color Colorless; Red Cell Count/CSF 296 mm^3; White Cell Count/CSF 4 mm^3 (0-5)
[2024-08-11 20:33] LABS: PT 13.7 Sec (11.4-14.6)
[2024-08-11 21:10] LABS: Glucose - Point of Care 217 mg/dl (70-99)
[2024-08-12] MEDS: DIOVAN 160 MG PO ×2 (00:33→22:27)
[2024-08-12] MEDS: FEOSOL 325 MG PO ×2 (00:34→22:26)
[2024-08-12] MEDS: NORVASC 10 MG PO ×2 (00:34→22:27)
[2024-08-12 03:32] VITALS: BP 133/81
[2024-08-12 07:30] VITALS: BP 143/85
--- NOTE | 2024-08-12 07:33 | W.PN.NEURO.1 ---
Today's Communication / Plan
-
Continue methylprednisolone which was initiated on 08/10/2024 for total of 5 doses
Neuro Assessment/Plan
Assessment
Abrupt onset of left-sided weakness involving arm and leg as well as left face, with prior episode of bladder dysfunction taking place several months ago
Differential diagnosis includes multiple sclerosis based on MRI of brain findings, lupus, MS variants including NMOSD and MOGAD
MRI of cervical, thoracic spine results unremarkable
Lumbar puncture to determine if MS on 08/11/2024
Plan
Continue methylprednisolone which was initiated on 08/10/2024 for total of 5 doses
Started iron replacement
await lab results
Goal of normotension
Goal of normoglycemia
Reviewed eventual need for outpatient medication to remediate risk of additional exacerbation
Will follow
Subjective/Objective
Subjective Data
Date of Service: August 12, 2024
Improved speech. LLE normal sensation.
Objective Data
Vital Signs
Temp Pulse Resp BP Pulse Ox
36.6 C 98 18 133/81 97
08/12/24 03:32 08/12/24 03:32 08/12/24 03:32 08/12/24 03:32 08/12/24 03:32
PT 13.7 Sec (11.4-14.6) 08/11/24 20:18
INR 1.00 08/11/24 20:18
APTT 27.8 Sec (23.4-35.0) 08/09/24 14:26
Sodium 137 mmol/L (135-145) 08/11/24 06:41
Potassium 5.0 mmol/L (3.5-5.1) 08/11/24 06:41
BUN 17 mg/dl (7-17) 08/11/24 06:41
Glucose 175 mg/dl (70-99) H 08/11/24 06:41
Calcium 10.5 mg/dl (8.4-10.2) H 08/11/24 06:41
LDL Cholesterol, Calc 117 mg/dl 08/10/24 05:32
Vitamin B12 769 pg/ml (239-931) 08/10/24 05:32
Ur Buprenorphine Negative (Negative) 08/10/24 12:07
Patient Allergies
Sulfa (Sulfonamide Antibiotics) Allergy (Verified 08/09/24 13:53)
Unknown
Review of Systems
-
History Source: Patient
All other systems: Reviewed and negative
Musculoskeletal: Other (left thigh, facial weakness on left); Negative Muscle Weakness (left hand)
Neuro: Negative Dizzy or Headache
Physical Exam
-
General: No Apparent Distress and Appears Stated Age
Eyes: Round OU, [place] Conjunctivae and No Ptosis
HEENT: Anicteric and Moist Mucous Membranes
Neck: Full Range of Motion
Respiratory: No Dyspnea
Cardiac: No JVD
GI: Non-distended
Extremities: No Clubbing, No Cyanosis and No Edema
Psych: Intact Judgement/Insight
Extended Neurological Exam
Mood & Affect: Mood Unremarkable and Affect Unremarkable
Attention Span & Concentration: Awake, Alert, Interactive and No Difficulty with 2 Step Request
Memory: Unremarkable
Tremor: Hand Tremor Absent and Head Tremor Absent
Speech: Quality Unremarkable and Quantity Unremarkable
Cranial Nerve II: Left Eye: Pupillary Size Unremarkable and Visual Krueger Grossly Intact
Cranial Nerve II: Right Eye: Pupillary Size Unremarkable and Visual Krueger Grossly Intact
Cranial Nerves III, IV, : Extraocular Movement: Grossly Intact
Cranial Nerve VII: Facial Symmetry: Normal Facial Symmetry
Cranial Nerve VIII: Hearing: Unremarkable Hearing to Normal Conversational Volume
Muscle Strength, Overall: Spontaneously Moves
Muscle Bulk & Tone: Bulk Unremarkable and Tone Unremarkable
Touch Sensation: Unremarkable
Coordination: [id number] Testing Unremarkable
Data Reviewed
-
MRI Thoracic Spine: Report Reviewed
Labs: Report Reviewed
Reviewed with: Nurse, Nurse Practioner and Patient
Old Records: Summarized
Past History
Past History
ED Past Medical History: GERD, HTN, NIDDM and Other (obesity, change on MRI of brain)
Medications
-
Medications:
Generic Name Dose Route Start Last Admin
Trade Name Freq PRN Reason Stop Dose Admin
Acetaminophen 650 mg 08/10/24 00:48
Acetaminophen 325 Mg Tablet PO 09/07/24 00:47
Q4HPRN PRN
HENDERSON, mild pain, or temp >100.4F
Amlodipine Besylate 10 mg 08/10/24 22:00 08/12/24 00:34
Amlodipine 10 Mg Tablet PO 09/07/24 21:59 10 mg
HS BENEDICT Administration
Cholecalciferol 125 mcg 08/10/24 11:30 08/11/24 07:57
Cholecalciferol (Vitamin D3) 125 Mcg Tablet (5,000 Units) PO 09/07/24 11:29 125 mcg
DAILY BENEDICT Administration
Dextrose 12.5 grams 08/10/24 14:12
Dextrose 50% (0.5 Grams/Ml) 50 Ml Syringe IV 09/07/24 14:11
[id number] PRN
hypoglycemia
Protocol
Ergocalciferol 50,000 units 08/10/24 14:00 08/10/24 14:46
Ergocalciferol (Vitamin D-2) 23355 Units Capsule PO 09/07/24 13:59 50,000 units
Q7D BENEDICT Administration
Ferrous Sulfate 325 mg 08/10/24 22:00 08/12/24 00:34
Ferrous Sulfate 325 Mg Tablet PO 09/07/24 21:59 325 mg
HS BENEDICT Administration
Glucagon 1 mg 08/10/24 14:12
Glucagon 1 Mg Vial IM 09/07/24 14:11
PRN PRN
hypoglycemia
Protocol
Hydrochlorothiazide 12.5 mg 08/11/24 09:00 08/11/24 10:11
Hydrochlorothiazide 12.5 Mg Tablet PO 09/08/24 08:59 12.5 mg
DAILY BENEDICT Administration
Insulin Glargine 15 units/ 0.15 mls @ 0 mls/hr 08/11/24 11:00 08/11/24 12:31
Device SC 09/08/24 10:59 0.15 mls
DAILY BENEDICT Administration
As Directed
Methylprednisolone Sodium 258 mls @ 258 mls/hr 08/12/24 08:00
Succinate 1,000 mg/ Sodium IV 08/14/24 08:59
Chloride Q24H BENEDICT
Insulin Aspart 0 units 08/10/24 16:30 08/11/24 18:00
Insulin Aspart Low Resistance 300 Units/3 Ml Pen.Injctr SC 09/07/24 16:29 2 units
AC BENEDICT Administration
Protocol
Insulin Aspart 5 units 08/11/24 11:30 08/11/24 18:00
Insulin Aspart (100 Units/Ml) 3 Ml Flexpen SC 09/08/24 11:29 5 units
AC BENEDICT Administration
Pantoprazole Sodium 40 mg 08/10/24 08:00 08/11/24 07:57
Pantoprazole 40 Mg Delayed Release Tablet PO 09/07/24 07:59 40 mg
DAILY BENEDICT Administration
Sodium Chloride 0 flush 08/10/24 02:00
Sodium Chloride 0.9% (Flush) Syringe IV 09/07/24 01:59
PER PROTOCOL BENEDICT
Valsartan 160 mg 08/10/24 22:00 08/12/24 00:33
Valsartan 80 Mg Tablet PO 09/07/24 21:59 160 mg
HS BENEDICT Administration
--- NOTE | 2024-08-12 07:46 | PN.DE.MGMTRT ---
Insulin Management
- -
08/12/2024: Diabetes Management F/U:
38 year old female w/PMH: HTN, GERD and anxiety that presented with Abrupt onset of left-sided weakness involving arm and leg as well as left face, with prior episode of bladder dysfunction taking place several months ago. MRI of brain findings
concerning for differential dx including: MS variants including NMOSD and MOGAD and Lupus. Pt has been started on stress dose IV steroids contributing to hyperglycemia. A1C 7.0%, Cr 0.6, eGFR >60.
States she has gained significant amt of weight since breaking her ankle 2 yrs ago. she no longer exercises as much as she used to prior to the injury.
Pt awake, alert, sitting up in bed, offers no complaints, able to discuss diabetes mgt.
Remains on steroids- Methylprednisolone 1000 mg daily for total of 5 doses, today is 11/10.
08/11 pre-dinner glucose improved to 196 to 237, requiring 1-2 units of additional corrective insulin. HS glucose was 217, FBG 174 this AM.
Will cont basal/bolus insulin while on steroid. Increase Lantus to 17 units in AM and NovoLog to 7 units AC. Cont Metformin 500mg BID.
Will transition to oral regimen when off steroids, given current A1C of 7%
Will closely monitor and adjust insulin if needed but eventually discontinue insulin all together once steroids have been weaned off.
Diabetes History
- -
Type of Diabetes: 2 requiring insulin
Pre-Admission Diabetes Regimen
08/11/24
06:41
Creatinine 0.6
Lab Results
Hemoglobin A1c 7.0 % (4.0-5.6) H 08/10/24 05:32
Insulin Pump Settings
IP Diabetes Regimen
08/11/24 08/11/24 08/11/24
06:41 11:55 17:58
Glucose 175 H
POC Glucose 197 H 237 H
08/11/24
21:05
Glucose
POC Glucose 217 H
Meal type: Lunch
Meal type: Breakfast
Amount consumed: 100%
Amount consumed: 100%
Patient Education
[2024-08-12 08:22] LABS: Glucose - Point of Care 174 mg/dl (70-99)
[2024-08-12] MEDS: NOVOLOG FLEXPEN SC ×2 (08:50→13:01)
[2024-08-12] MEDS: LANTUS SC (08:50)
[2024-08-12] MEDS: ORETIC 12.5 MG PO (08:55)
[2024-08-12] MEDS: PROTONIX 40 MG PO (08:55)
[2024-08-12] MEDS: SOLU-MEDROL 258 MG IV (08:56)
[2024-08-12] MEDS: VITAMIN D3 (cholecalciferol) 125 MCG PO (08:56)
[2024-08-12] MEDS: GLUCOPHAGE 500 MG PO ×2 (08:56→17:42)
[2024-08-12] MEDS: NOVOLOG FLEXPEN-LOW RESISTANCE 1 UNITS SC ×2 (08:59→13:01)
[2024-08-12 09:12] LABS: Hematocrit 41.6 % (37.0-47.0); Mean Corp Hgb Conc. 33.7 g/dL (33.0-37.0); Mean Corpuscular Hgb 27.9 pg (27.0-31.0); Mean Platelet Volume 9.6 fL (7.4-10.4); Platelet Count 545 10^3/uL (130-400); Red Blood Cell Count 5.01 10^6/uL (4.20-5.40); Red Cell Dist. Width 13.9 % (11.5-14.5); White Blood Cell Count 34.2 10^3/uL (4.8-10.8)
[2024-08-12 09:31] LABS: Blood Urea Nitrogen 22 mg/dl (7-17); Calcium 10.4 mg/dl (8.4-10.2); Carbon Dioxide 21 mmol/L (22-30); Chloride 102 mmol/L (98-107); Estimated Creatinine Clearance > 125 ml/min; Glucose 166 mg/dl (70-99); Sodium 141 mmol/L (135-145); eGFR > 60.00
[2024-08-12 10:06] LABS: % Basophils 0.1 % (0-2); % Eosinophils 0.1 % (0-6); % Lymphocytes 6.7 % (20.5-51.1); % Monocytes 5.2 % (1.7-9.3); % Neutrophils 86.9 % (42.2-75.2); Absolute Basophils 0.1 10^3/uL (0-0.2); Absolute Immature Granulocytes 0.3 10^3/uL (0-0.05); Absolute Lymphocytes 2.3 10^3/uL (1.2-3.4); Absolute Monocytes 1.8 10^3/uL (0.1-0.6); Absolute Neutrophils 29.7 10^3/uL (1.4-6.5); Nucleated Red Blood Cells % 0 %
[2024-08-12 11:00] VITALS: BP 171/80
--- NOTE | 2024-08-12 12:41 | W.PN.HOSP.TC ---
Today's Communication/Plan
-
monitor vitals
see plan
cw IV steroids
PPI
cw insulin
awaiting LP labs
Assessment / Plan
Assessment / Plan
Left lower lip droop, left-sided weakness and numbness likely secondary to demyelination with possible MS
Left sided weakness and numbness
CT: No acute intracranial abnormality noted.
CTA: No evidence of acute vascular abnormality of the head/neck. No evidence of M1 and M2 occlusion.
Mild reversal of the normal cervical spinal lordosis. This can be seen with muscular spasm.
Bilateral subcentimeter hypodense thyroid lesions likely benign nodules. Nonurgent dedicated thyroid ultrasound recommended if not previously evaluated.
MRI brain with white matter changes, MRI cervical spine neg and thoracic spine neg
s/p LP /; results pending
Started high-dose steroids,continue
PPI
Leukocytosis secondary to steroids
New onset DM
consulted diabetes ASSISTANT PROFESSOR OF GEOGRAPHY
cw insulin for now; prior to DC likely would need PO meds
A1c 7
accuchecks; LDSS
#hypertension
uncontrolled; added HCTZ
- continue amlodipine and valsartan
hydralazine prn
mild hypercalcemia
monitor
#GERD
- continue pantoprazole
Code Status: Full Code
DVT Prophylaxis: SCDs
General: Well Developed, Well Nourished, No Apparent Distress, Comfortable and Conversant
HEENT: NormoCephalic, Moist mucous membranes, Atraumatic, PERRLA, [place] Conjunctivae, Nose Appears Normal and Ears Appear Normal
Respiratory: Clear and Non Labored Respirations
Cardiac: S1/S2 and Regular Rhythm; No Murmur
Musculoskeletal: No Edema
Skin: Warm and IV/Catheter Site; No Rash
Neuro: Awake, Alert, AO x 3, Nonfocal/grossly intact and Facial Droop (left lower lip)
Psych: Calm and Intact Judgment/Insight
Anticipated Discharge: > 48 hours
Subjective/Interval History
-
Date of Service: August 12, 2024
denies pain
Objective Data
-
Labs:
Laboratory Results
08/12/24
08:11
WBC 34.2 H
Hgb 14.0
Hct 41.6
Plt Count 545 H
Sodium 141
Potassium 4.0
Chloride 102
Carbon Dioxide 21 L
BUN 22 H
Creatinine 0.6
Glucose 166 H
Calcium 10.4 H
Vital Signs:
Vital Signs
Temp Pulse Resp BP Pulse Ox
97.7 F 85 20 171/80 97
08/12/24 11:00 08/12/24 11:00 08/12/24 11:00 08/12/24 11:00 08/12/24 11:00
I&O
08/11/24 08/12/24 08/13/24
06:59 06:59 06:59
Intake Total 1263 / 1263 1200 / 1200
Balance 1263 / 1263 1200 / 1200
[2024-08-12 12:45] LABS: Glucose - Point of Care 194 mg/dl (70-99)
[2024-08-12] MEDS: NOVOLOG FLEXPEN 7 UNITS SC ×2 (13:01→17:43)
[2024-08-12 15:00] VITALS: BP 148/94
--- NOTE | 2024-08-12 15:09 | CM ---
performance improvement manager reviewed patient's chart and plan is to home when stable.
Plan; Home when stable.
[2024-08-12 15:31] LABS: Glucose - Point of Care 251 mg/dl (70-99)
[2024-08-12] MEDS: LANTUS 0.17 UNITS SC (15:33)
--- NOTE | 2024-08-12 15:59 | PTCARENOTE ---
Met with Dayana to review diabetes management and blood glucose monitoring. Dayana is currently taking insulin while receiving IV steroids. We reviewed type 1 and type 2 diabetes as well as the hemoglobin A1c level and target blood glucose
levels. Factors that increase and decrease the blood sugar were discussed in detail. 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 Healthy meal choices along with increasing exercise were
reviewed. Dayana demonstrated proper technique with checking a fingerstick blood sugar and we reviewed a plan for monitoring. Written material on diabetes management along with a flyer for the DSME program was given to Dayana and she was eager
to attend depending on her insurance coverage. I encouraged her to contact the office if she has any questions or needs further assistance.
[2024-08-12 17:11] LABS: Glucose - Point of Care 245 mg/dl (70-99)
[2024-08-12] MEDS: NOVOLOG FLEXPEN-LOW RESISTANCE 2 UNITS SC (17:42)
[2024-08-12 19:24] VITALS: BP 141/84
[2024-08-12 21:42] LABS: Glucose - Point of Care 196 mg/dl (70-99)
[2024-08-12 23:27] VITALS: BP 129/77
[2024-08-13 03:13] VITALS: BP 123/68
[2024-08-13 07:00] VITALS: BP 111/66
[2024-08-13 07:34] LABS: % Basophils 0.2 % (0-2); % Immature Granulocytes 0.8 % (0-0.5); % Lymphocytes 10.5 % (20.5-51.1); % Neutrophils 81.5 % (42.2-75.2); Absolute Immature Granulocytes 0.2 10^3/uL (0-0.05); Absolute Lymphocytes 2.4 10^3/uL (1.2-3.4); Absolute Monocytes 1.6 10^3/uL (0.1-0.6); Absolute Neutrophils 18.3 10^3/uL (1.4-6.5); Hematocrit 41.3 % (37.0-47.0); Hemoglobin 14.3 g/dL (12.0-16.0); Mean Corp Hgb Conc. 34.6 g/dL (33.0-37.0); Mean Corpuscular Hgb 28.5 pg (27.0-31.0); Mean Corpuscular Volume 82.4 fL (81.0-99.0); Mean Platelet Volume 9.3 fL (7.4-10.4); Nucleated Red Blood Cells % 0 %; Platelet Count 509 10^3/uL (130-400); Red Blood Cell Count 5.01 10^6/uL (4.20-5.40); Red Cell Dist. Width 13.6 % (11.5-14.5); White Blood Cell Count 22.5 10^3/uL (4.8-10.8)
--- NOTE | 2024-08-13 07:44 | PN.DE.MGMTRT ---
Insulin Management
- -
08/13/2024: Diabetes Management F/U:
38 year old female w/PMH: HTN, GERD and anxiety that presented with Abrupt onset of left-sided weakness involving arm and leg as well as left face, with prior episode of bladder dysfunction taking place several months ago. MRI of brain findings
concerning for differential dx including: MS variants including NMOSD and MOGAD and Lupus. Pt has been started on stress dose IV steroids contributing to hyperglycemia. A1C 7.0%, Cr 0.6, eGFR >60.
States she has gained significant amt of weight since breaking her ankle 2 yrs ago. she no longer exercises as much as she used to prior to the injury.
Pt awake, alert, sitting up in bed, offers no complaints, able to discuss diabetes mgt.
Remains on steroids- Methylprednisolone 1000 mg daily for total of 5 doses, today is 4/.
08/12 pre-meal glucose 174 to 251, requiring 1-2 units of additional corrective insulin. HS glucose was 196, FBG 163(V) and 154 POC this AM.
Will increase Lantus to 19 units in AM and NovoLog to 9 units AC. Cont Metformin 500mg BID.
Plan to transition to oral regimen when off steroids, given current A1C of 7%
Will closely monitor and adjust insulin if needed but eventually discontinue insulin all together once steroids have been weaned off.
Diabetes History
- -
Type of Diabetes: 2 requiring insulin
Pre-Admission Diabetes Regimen
08/12/24
08:11
Creatinine 0.6
Lab Results
Hemoglobin A1c 7.0 % (4.0-5.6) H 08/10/24 05:32
Insulin Pump Settings
IP Diabetes Regimen
08/12/24 08/12/24 08/12/24
08:11 08:14 12:26
Glucose 166 H
POC Glucose 174 H 194 H
08/12/24 08/12/24 08/12/24
15:29 17:06 21:41
Glucose
POC Glucose 251 H 245 H 196 H
Patient Education
[2024-08-13 07:48] LABS: Blood Urea Nitrogen 24 mg/dl (7-17); Calcium 10.6 mg/dl (8.4-10.2); Carbon Dioxide 26 mmol/L (22-30); Chloride 101 mmol/L (98-107); Estimated Creatinine Clearance > 125 ml/min; Glucose 163 mg/dl (70-99); Potassium 4.2 mmol/L (3.5-5.1); Sodium 141 mmol/L (135-145); eGFR > 60.00
[2024-08-13 08:02] LABS: Glucose - Point of Care 154 mg/dl (70-99)
[2024-08-13] MEDS: NOVOLOG FLEXPEN-LOW RESISTANCE 1 UNITS SC (08:26)
[2024-08-13] MEDS: NOVOLOG FLEXPEN 9 UNITS SC ×3 (08:27→17:59)
[2024-08-13] MEDS: PROTONIX 40 MG PO (08:28)
[2024-08-13] MEDS: ORETIC 12.5 MG PO (08:28)
[2024-08-13] MEDS: VITAMIN D3 (cholecalciferol) 125 MCG PO (08:28)
[2024-08-13] MEDS: GLUCOPHAGE 500 MG PO ×2 (08:28→17:59)
[2024-08-13] MEDS: SOLU-MEDROL 258 MG IV (08:29)
[2024-08-13] MEDS: NOVOLOG FLEXPEN SC (08:31)
[2024-08-13] MEDS: LANTUS 0.19 UNITS SC (08:38)
--- NOTE | 2024-08-13 09:01 | W.PN.NEURO.1 ---
Today's Communication / Plan
-
Continue methylprednisolone which was initiated on 08/10/2024 for total of 5 doses
Neuro Assessment/Plan
Assessment
Abrupt onset of left-sided weakness involving arm and leg as well as left face, with prior episode of bladder dysfunction taking place several months ago
Differential diagnosis includes multiple sclerosis based on MRI of brain findings, lupus, MS variants including NMOSD and MOGAD
MRI of cervical, thoracic spine results unremarkable
Lumbar puncture to determine if MS on 08/11/2024
Plan
Continue methylprednisolone which was initiated on 08/10/2024 for total of 5 doses
Started iron replacement
await lab results
Goal of normotension
Goal of normoglycemia
Reviewed eventual need for outpatient medication against MS to remediate risk of additional exacerbation
Will follow
Subjective/Objective
Subjective Data
Date of Service: August 13, 2024
Low back pain at site of discomfort. Improved not perfect hand speed.
Objective Data
Vital Signs
Temp Pulse Resp BP Pulse Ox
36.8 C 72 20 123/68 95
08/13/24 03:13 08/13/24 03:13 08/13/24 03:13 08/13/24 03:13 08/13/24 03:13
Lab Results
08/13/24 07:13
08/13/24 07:13
PT 13.7 Sec (11.4-14.6) 08/11/24 20:18
INR 1.00 08/11/24 20:18
APTT 27.8 Sec (23.4-35.0) 08/09/24 14:26
Sodium 141 mmol/L (135-145) 08/13/24 07:13
Potassium 4.2 mmol/L (3.5-5.1) 08/13/24 07:13
BUN 24 mg/dl (7-17) H 08/13/24 07:13
Glucose 163 mg/dl (70-99) H 08/13/24 07:13
Calcium 10.6 mg/dl (8.4-10.2) H 08/13/24 07:13
LDL Cholesterol, Calc 117 mg/dl 08/10/24 05:32
Vitamin B12 769 pg/ml (239-931) 08/10/24 05:32
Ur Buprenorphine Negative (Negative) 08/10/24 12:07
Patient Allergies
Sulfa (Sulfonamide Antibiotics) Allergy (Verified 08/09/24 13:53)
Unknown
Review of Systems
-
History Source: Patient
All other systems: Reviewed and negative
EENT: Negative Decreased Vision or Swallowing Difficulty
Respiratory: Negative Trouble Breathing
Cardiac: Negative Chest Pain
Musculoskeletal: Other (left thigh, facial weakness on left); Negative Muscle Pain or Muscle Weakness (left hand)
Neuro: Negative Dizzy or Headache
Physical Exam
-
General: No Apparent Distress and Appears Stated Age
Eyes: Round OU, [place] Conjunctivae and No Ptosis
HEENT: Anicteric and Moist Mucous Membranes
Neck: Full Range of Motion
Respiratory: No Dyspnea
Cardiac: No JVD
GI: Non-distended
Extremities: No Clubbing, No Cyanosis and No Edema
Psych: Intact Judgement/Insight
Extended Neurological Exam
Mood & Affect: Mood Unremarkable and Affect Unremarkable
Attention Span & Concentration: Awake, Alert and Interactive
Memory: Unremarkable
Tremor: Hand Tremor Absent and Head Tremor Absent
Speech: Quality Unremarkable and Quantity Unremarkable
Cranial Nerve II: Left Eye: Pupillary Size Unremarkable and Visual Krueger Grossly Intact
Cranial Nerve II: Right Eye: Pupillary Size Unremarkable and Visual Krue[place] Grossly Intact
Cranial Nerves III, IV, : Extraocular Movement: Grossly Intact
Cranial Nerve VII: Facial Symmetry: Normal Facial Symmetry
Cranial Nerve VIII: Hearing: Unremarkable Hearing to Normal Conversational Volume
Muscle Strength, Overall: Spontaneously Moves
Muscle Bulk & Tone: Bulk Unremarkable and Tone Unremarkable
Touch Sensation: Unremarkable
Coordination: Reaches for Objects without Difficulty
Data Reviewed
-
Labs: Report Reviewed
Reviewed with: Nurse Practioner and Patient
Old Records: Summarized
[2024-08-13] MEDS: NSS 1000 IV (09:58)
[2024-08-13 11:00] VITALS: BP 151/97
--- NOTE | 2024-08-13 12:59 | W.PN.HOSP.TC ---
Today's Communication/Plan
-
Monitor vital signs see plan
Continue with high-dose steroids
PPI
Continue with insulin, metformin
follow LP labs
Assessment / Plan
Assessment / Plan
Left lower lip droop, left-sided weakness and numbness likely secondary to demyelination with possible MS
Left sided weakness and numbness
CT: No acute intracranial abnormality noted.
CTA: No evidence of acute vascular abnormality of the head/neck. No evidence of M1 and M2 occlusion.
Mild reversal of the normal cervical spinal lordosis. This can be seen with muscular spasm.
Bilateral subcentimeter hypodense thyroid lesions likely benign nodules. Nonurgent dedicated thyroid ultrasound recommended if not previously evaluated.
MRI brain with white matter changes, MRI cervical spine neg and thoracic spine neg
s/p LP 08/11; results pending
Started high-dose steroids,continue
PPI
Leukocytosis secondary to steroids
New onset DM
consulted diabetes BIOLOGICS SPECIALIST
cw insulin for now; prior to DC likely would need PO meds
A1c 7
accuchecks; LDSS
started metformin
#hypertension
uncontrolled; added HCTZ
- continue amlodipine and valsartan
hydralazine prn
mild hypercalcemia
monitor
IVF
#GERD
- continue pantoprazole
Code Status: Full Code
DVT Prophylaxis: SCDs
General: Well Developed, Well Nourished, No Apparent Distress, Comfortable and Conversant
HEENT: NormoCephalic, Moist mucous membranes, Atraumatic, PERRLA, [place] Conjunctivae, Nose Appears Normal and Ears Appear Normal
Respiratory: Clear and Non Labored Respirations
Cardiac: S1/S2 and Regular Rhythm; No Murmur
Musculoskeletal: No Edema
Skin: Warm and IV/Catheter Site; No Rash
Neuro: Awake, Alert, AO x 3, Nonfocal/grossly intact and Facial Droop (left lower lip)
Psych: Calm and Intact Judgment/Insight
Anticipated Discharge: 24 - 48 hours
Subjective/Interval History
-
Date of Service: August 13, 2024
denies nausea
Objective Data
-
Labs:
Laboratory Results
08/13/24
07:13
WBC 22.5 H
Hgb 14.3
Hct 41.3
Plt Count 509 H
Sodium 141
Potassium 4.2
Chloride 101
Carbon Dioxide 26
BUN 24 H
Creatinine 0.7
Glucose 163 H
Calcium 10.6 H
Vital Signs:
Vital Signs
Temp Pulse Resp BP Pulse Ox
97.9 F 71 18 111/66 96
08/13/24 07:00 08/13/24 07:00 08/13/24 07:00 08/13/24 07:00 08/13/24 07:00
I&O
08/12/24 08/13/24 08/14/24
06:59 06:59 06:59
Intake Total 1200 / 1200 1080 / 1080
Balance 1200 / 1200 1080 / 1080
[2024-08-13 13:00] LABS: Glucose - Point of Care 201 mg/dl (70-99)
[2024-08-13] MEDS: NOVOLOG FLEXPEN-LOW RESISTANCE 2 UNITS SC ×2 (13:31→17:59)
[2024-08-13 15:00] VITALS: BP 134/87
--- NOTE | 2024-08-13 15:15 | CM ---
zone manager reviewed patient's chart and met with patient and patient to return to home when medically stable.
Plan; Home when stable.
--- NOTE | 2024-08-13 16:03 | PTCARENOTE ---
Assumed care of pt from previous nurse. Pt denies pain. pt conts with slight droop to mouth. No other neuro deficits. Pt call mae is within reach, pt rings erick. will cont to monitor.
[2024-08-13 17:12] LABS: Glucose - Point of Care 227 mg/dl (70-99)
[2024-08-13 21:11] LABS: Glucose - Point of Care 170 mg/dl (70-99)
[2024-08-13] MEDS: DIOVAN 160 MG PO (21:50)
[2024-08-13] MEDS: FEOSOL 325 MG PO (21:50)
[2024-08-13] MEDS: NORVASC 10 MG PO (21:50)
[2024-08-14 00:32] LABS: SSA 52 (Ro)(ENA) Ab, IgG 2 AU/mL (0-40); SSA 60 (Ro)(ENA) Ab, IgG 0 AU/mL (0-40); SSB (La)(ENA) Ab, IgG 0 AU/mL (0-40)
[2024-08-14 01:57] LABS: ANA, IgG Reflex to HEp-2 None Detected (None Detected)
[2024-08-14 06:53] VITALS: BP 157/93
[2024-08-14 07:10] LABS: % Basophils 0.2 % (0-2); % Immature Granulocytes 2.6 % (0-0.5); % Lymphocytes 16.6 % (20.5-51.1); % Monocytes 6.7 % (1.7-9.3); % Neutrophils 73.9 % (42.2-75.2); Absolute Immature Granulocytes 0.5 10^3/uL (0-0.05); Absolute Lymphocytes 3.1 10^3/uL (1.2-3.4); Absolute Monocytes 1.3 10^3/uL (0.1-0.6); Hematocrit 40.5 % (37.0-47.0); Hemoglobin 13.4 g/dL (12.0-16.0); Mean Corp Hgb Conc. 33.1 g/dL (33.0-37.0); Mean Corpuscular Hgb 27.5 pg (27.0-31.0); Mean Platelet Volume 9.5 fL (7.4-10.4); Nucleated Red Blood Cells % 0 %; Platelet Count 478 10^3/uL (130-400); Red Blood Cell Count 4.88 10^6/uL (4.20-5.40); Red Cell Dist. Width 13.5 % (11.5-14.5); White Blood Cell Count 18.9 10^3/uL (4.8-10.8)
[2024-08-14 07:21] LABS: Blood Urea Nitrogen 22 mg/dl (7-17); Calcium 10.1 mg/dl (8.4-10.2); Carbon Dioxide 25 mmol/L (22-30); Chloride 102 mmol/L (98-107); Estimated Creatinine Clearance > 125 ml/min; Glucose 145 mg/dl (70-99); Potassium 4.3 mmol/L (3.5-5.1); Sodium 141 mmol/L (135-145); eGFR > 60.00
[2024-08-14] MEDS: NOVOLOG FLEXPEN-LOW RESISTANCE 1 UNITS SC ×2 (08:05→13:05)
[2024-08-14 08:06] LABS: Glucose - Point of Care 161 mg/dl (70-99)
[2024-08-14] MEDS: GLUCOPHAGE 500 MG PO (08:06)
[2024-08-14] MEDS: NOVOLOG FLEXPEN 9 UNITS SC ×2 (08:06→13:06)
[2024-08-14] MEDS: LANTUS 0.19 UNITS SC (08:06)
[2024-08-14] MEDS: SOLU-MEDROL 258 MG IV (08:07)
[2024-08-14] MEDS: ORETIC 12.5 MG PO (08:07)
[2024-08-14] MEDS: VITAMIN D3 (cholecalciferol) 125 MCG PO (08:07)
[2024-08-14] MEDS: PROTONIX 40 MG PO (08:07)
--- NOTE | 2024-08-14 11:19 | W.PN.NEURO.1 ---
Today's Communication / Plan
-
Continue methylprednisolone which was initiated on 08/10/2024 for total of 5 doses
As outpatient iron replacement
await lab results
Goal of normotension
Goal of normoglycemia
Reviewed eventual need for outpatient medication against MS to remediate risk of additional exacerbation
Neuro Assessment/Plan
Assessment
Abrupt onset of left-sided weakness involving arm and leg as well as left face, with prior episode of bladder dysfunction taking place several months ago
Differential diagnosis includes multiple sclerosis based on MRI of brain findings, lupus, MS variants including NMOSD and MOGAD
MRI of cervical, thoracic spine results unremarkable
Lumbar puncture to determine if MS on 08/11/2024
Plan
Continue methylprednisolone which was initiated on 08/10/2024 for total of 5 doses
Started iron replacement
await lab results
Goal of normotension
Goal of normoglycemia
Reviewed eventual need for outpatient medication against MS to remediate risk of additional exacerbation
Will follow as outpatient
Subjective/Objective
Subjective Data
Date of Service: August 14, 2024
No new changes. No longer leg pain
Objective Data
Vital Signs
Temp Pulse Resp BP Pulse Ox
36.5 C 71 18 157/93 100
08/14/24 06:53 08/14/24 06:53 08/14/24 06:53 08/14/24 06:53 08/14/24 06:53
Lab Results
08/14/24 05:53
08/14/24 05:52
PT 13.7 Sec (11.4-14.6) 08/11/24 20:18
INR 1.00 08/11/24 20:18
APTT 27.8 Sec (23.4-35.0) 08/09/24 14:26
Sodium 141 mmol/L (135-145) 08/14/24 05:52
Potassium 4.3 mmol/L (3.5-5.1) 08/14/24 05:52
BUN 22 mg/dl (7-17) H 08/14/24 05:52
Glucose 145 mg/dl (70-99) H 08/14/24 05:52
Calcium 10.1 mg/dl (8.4-10.2) 08/14/24 05:52
LDL Cholesterol, Calc 117 mg/dl 08/10/24 05:32
Vitamin B12 769 pg/ml (239-931) 08/10/24 05:32
Ur Buprenorphine Negative (Negative) 08/10/24 12:07
Patient Allergies
Sulfa (Sulfonamide Antibiotics) Allergy (Verified 08/09/24 13:53)
Unknown
Physical Exam
-
General: No Apparent Distress, Appears Stated Age and Other (overweight)
Eyes: Round OU, [place] Conjunctivae and No Ptosis
HEENT: Anicteric and Moist Mucous Membranes
Neck: Full Range of Motion
Respiratory: No Dyspnea
Cardiac: No JVD
GI: Non-distended
Extremities: No Clubbing, No Cyanosis and No Edema
Psych: Intact Judgement/Insight
Extended Neurological Exam
Mood & Affect: Mood Unremarkable and Affect Unremarkable
Attention Span & Concentration: Awake, Alert and Interactive
Memory: Unremarkable
Tremor: Hand Tremor Absent and Head Tremor Absent
Speech: Quality Unremarkable and Quantity Unremarkable
Cranial Nerve II: Left Eye: Pupillary Size Unremarkable and Visual [place]ue[place] Grossly Intact
Cranial Nerve II: Right Eye: Pupillary Size Unremarkable and Visual [place] Grossly Intact
Cranial Nerves III, IV, : Extraocular Movement: Grossly Intact
Cranial Nerve VII: Facial Symmetry: Normal Facial Symmetry
Cranial Nerve VIII: Hearing: Unremarkable Hearing to Normal Conversational Volume
Muscle Strength, Overall: Spontaneously Moves
Muscle Bulk & Tone: Bulk Unremarkable and Tone Unremarkable
Touch Sensation: Unremarkable
Coordination: Reaches for Objects without Difficulty
Data Reviewed
-
Labs: Pending and Report Reviewed
Reviewed with: Physician and Patient
Old Records: Summarized
[2024-08-14 11:44] LABS: Glucose - Point of Care 179 mg/dl (70-99)
--- NOTE | 2024-08-14 12:20 | W.PN.HOSP.TC ---
Today's Communication/Plan
-
Monitor vital signs see plan
Finished 5 days of high-dose steroids
Symptoms improved
Spoke with neurology, discharge today with outpatient follow-up
Will discharge on metformin and glipizide for diabetes
Time of discharge 38 minutes
Assessment / Plan
Assessment / Plan
Left lower lip droop, left-sided weakness and numbness likely secondary to demyelination with possible MS
Left sided weakness and numbness
CT: No acute intracranial abnormality noted.
CTA: No evidence of acute vascular abnormality of the head/neck. No evidence of M1 and M2 occlusion.
Mild reversal of the normal cervical spinal lordosis. This can be seen with muscular spasm.
Bilateral subcentimeter hypodense thyroid lesions likely benign nodules. Nonurgent dedicated thyroid ultrasound recommended if not previously evaluated.
MRI brain with white matter changes, MRI cervical spine neg and thoracic spine neg
s/p LP 08/11; all results pending however does not appear infectious. Spoke with neurology and they are okay with patient going home since feeling better and she will follow-up outpatient for further MS management
finished high-dose steroids
PPI
Leukocytosis secondary to steroids
New onset DM
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
cw insulin for now; prior to DC likely would need PO meds
A1c 7
accuchecks; LDSS
started metformin, will add glipizide on dc
#hypertension
uncontrolled; added HCTZ
- continue amlodipine and valsartan
hydralazine prn
mild hypercalcemia
monitor
improved
#GERD
- continue pantoprazole
Code Status: Full Code
DVT Prophylaxis: SCDs
General: Well Developed, Well Nourished, No Apparent Distress, Comfortable and Conversant
HEENT: NormoCephalic, Moist mucous membranes, Atraumatic, PERRLA, [place] Conjunctivae, Nose Appears Normal and Ears Appear Normal
Respiratory: Clear and Non Labored Respirations
Cardiac: S1/S2 and Regular Rhythm; No Murmur
Musculoskeletal: No Edema
Skin: Warm and IV/Catheter Site; No Rash
Neuro: Awake, Alert, AO x 3, Nonfocal/grossly intact and Facial Droop (left lower lip)
Psych: Calm and Intact Judgment/Insight
Anticipated Discharge: Today
Subjective/Interval History
-
Date of Service: August 14, 2024
denies pain
Objective Data
-
Labs:
Laboratory Results
08/14/24 08/14/24
05:52 05:53
WBC 18.9 H
Hgb 13.4
Hct 40.5
Plt Count 478 H
Sodium 141
Potassium 4.3
Chloride 102
Carbon Dioxide 25
BUN 22 H
Creatinine 0.7
Glucose 145 H
Calcium 10.1
Vital Signs:
Vital Signs
Temp Pulse Resp BP Pulse Ox
97.7 F 71 18 157/93 100
08/14/24 06:53 08/14/24 06:53 08/14/24 06:53 08/14/24 06:53 08/14/24 06:53
I&O
08/13/24 08/14/24 08/15/24
06:59 06:59 06:59
Intake Total 1080 / 1080
Balance 1080 / 1080
--- NOTE | 2024-08-14 12:28 | W.DCSUMMARY ---
Discharge Summary
Discharge Data
Date of Admission: 08/09/24
Date of Discharge: 08/14/24
-
Pending Results: Yes
Hospital Course
39-year-old female with past medical history of hypertension, GERD came to the hospital with left lower lip droop and left-sided weakness and numbness. CT scan was negative for any acute CVA. MRI later showed white matter changes concerning for
demyelinating disease with possible multiple sclerosis. Patient was seen by neurology throughout hospitalization. Patient was started on high-dose corticosteroids which continue to improve her symptoms. She also had MRI of the spine which did not
show any signs of white matter changes. Patient then later got lumbar puncture where some of the results were still pending however it did not seem any infectious etiology. Since patient symptoms continue to improve, neurology felt patient is safe
to go home with outpatient follow-up. While she was hospitalized she also had new onset diabetes mellitus where she was seen by diabetes nurse practitioner. Initially she was started on insulin however on discharge she was put on metformin and
glipizide. She also had uncontrolled hypertension where hydrochlorothiazide was added to her blood pressure regimen. Once her symptoms continue to improve, she was then discharged home with instructions to follow-up with all her physicians
outpatient.
Discharge Plan
-
Patient Disposition: Home (Routine Discharge)
Discharge Diagnosis/Procedures: Left lower lip droop, left-sided weakness and numbness likely secondary to demyelination with possible multiple sclerosis
New onset diabetes mellitus
Uncontrolled hypertension
Diet: As tolerated
Activity: As tolerated
Driving Restrictions: As prior to admission
Bathing Restrictions: None
Blood Work: Please follow-up with neurology for final LP results
Referrals:
Ramo Castañeda MD [Active] - in one week
Jl Goodwin DO [Family Provider] - in less than 1 week
Prescriptions:
New
(DME) Contour Next Test Strips Strip
Qty: 60 0RF
Rx Instructions:
Pt Testing 2 times a day
(DME) lancets [Microlet Lancet] Misc
Qty: 60 0RF
Rx Instructions:
Testing TWICE a day
ferrous sulfate [FeroSul] 325 mg (65 mg iron) Tablet
325 mg PO HS Qty: 30 0RF
metformin 500 mg Tablet
500 mg PO BID@0800,1700 Qty: 60 0RF
hydrochlorothiazide 12.5 mg Tablet
12.5 mg PO DAILY Qty: 30 0RF
glipizide 5 mg tablet
5 mg PO DAILY Qty: 30 0RF
Continued
therapeutic multivitamin Tablet
1 tab PO QPM
amlodipine 10 mg Tablet
10 mg PO HS
pantoprazole 40 mg Tablet,Delayed Release (Dr/Ec)
40 mg PO DAILY
valsartan 160 mg Tablet
160 mg PO HS
biotin 5 mg Tablet
5 mg PO QPM
cholecalciferol (vitamin D3) [Vitamin D3] 50 mcg (2,000 unit) Tablet
100 mcg PO QPM
Discharge Orders:
Discharge Patient (As Directed); Ordered 08/14/24
Ordered By: Carlos Nunez
Discharge Date and Time
Discharge Date/Time: 08/14/24 14:09
Print Language: EMIRATI
[2024-08-14 13:00] VITALS: BP 140/78
--- NOTE | 2024-08-14 13:33 | CM ---
Pt for dc today.
No needs were identified and pt has transportation home.
[2024-08-14 18:33] LABS: CSF VDRL (T. pallidum) Non Reactive (Non Reactive)
[2024-08-15 11:43] LABS: Albumin Index 5.4 ratio (0.0-9.0); Albumin, CSF 25 mg/dL (0-35); Albumin, Serum 4595 mg/dL (3500-5200); CSF IgG Synthesis Rate 3.3 mg/d (<=8.0); CSF IgG/Albumin Ratio 0.14 ratio (0.09-0.25); CSF Oligoclonal Bands Positive (Negative); CSF Oligoclonal Bands Number 2 Bands (0-1); IgG 860 mg/dL (768-1632); IgG, CSF 3.4 mg/dL (0.0-6.0)
[2024-08-16 14:28] LABS: Lyme Antibody Screen, EIA Negative (Negative)
[2024-08-16 16:02] LABS: Lyme Disease DNA by PCR Not Detected; Lyme Source CSF
== END 2024-08-14 14:09 | disposition home or self-care (01) | DRG 59 ==
LOC: 4 WEST ACU 23:05
PROVIDERS: Nurse Practitioner Family; Radiology Diagnostic Radiology; ADMITTING PHYSICIAN Hospitalist; ATTENDING PHYSICIAN Internal Medicine; CONSULT PHYSICIAN Psychiatry & Neurology Neurology; EMERGENCY PHYSICIAN Student in an Organized Health Care Education/Training Program; FAMILY PHYSICIAN Family Medicine
PROC: B01B1ZZ Fluoroscopy of Spinal Cord using Low Osmolar Contrast (ICD-10-PCS; 2024-08-11)
PROC: 009U3ZX Drainage of Spinal Canal, Percutaneous Approach, Diagnostic (ICD-10-PCS; 2024-08-11)
DX: G35 Multiple sclerosis (principal); Z68.41 Body mass index [BMI] 40.0-44.9, adult; R53.1 Weakness; I10 Essential (primary) hypertension; R29.810 Facial weakness; K21.9 Gastro-esophageal reflux disease without esophagitis; F41.9 Anxiety disorder, unspecified; E66.9 Obesity, unspecified; R20.0 Anesthesia of skin; R27.9 Unspecified lack of coordination; E11.9 Type 2 diabetes mellitus without complications; E83.52 Hypercalcemia; D72.828 Other elevated white blood cell count; T38.0X5A Adverse effect of glucocorticoids and synthetic analogues, initial encounter; Y92.239 Unspecified place in hospital as the place of occurrence of the external cause; Z88.2 Allergy status to sulfonamides
CPT/HCPCS: 62328; 70450; 70496; 70498; 70551; 70552; 72156; 72157; 80048; 80053; 80061; 80306; 81003; 82040; 82042; 82248; 82306; 82607; 82728; 82746; 82784; 82945; 82962; 83036; 83873; 83916; 84157; 84443; 84484; 84703; 85025; 85610; 85652; 85730; 86038; 86140; 86235; 86592; 86618; 86850; 86900; 86901; 87015; 87070; 87102; 87116; 87205; 87476; 88108; 89051; 92523; 92610; 93005; 99285; A9575; Q9967